=== PATIENT | male | born 1940 | race Caucasian/White ===

== ENCOUNTER → 2018-09-01 | Day surgery (SDC) | payer MEDICARE ==
[2018-08-26 16:28] LABS: BASOPHILS % 0.3 % (0.0-1.0); EOSINOPHILS # (AUTO) 0.2 (0.0-0.4); HEMATOCRIT 46.9 % (38.2-49.6); LYMPHOCYTES # (AUTO) 1.9 (1.0-3.2); LYMPHOCYTES % 20.1 % (18.0-39.1); MEAN CORPUSCULAR HEMOGLOBIN 30.8 pg (28-32); MEAN CORPUSCULAR HGB CONC 34.1 g/dL (31-35); MEAN CORPUSCULAR VOLUME 90.2 fL (81-99); MONOCYTES # (AUTO) 0.9 (0.2-0.8); MONOCYTES % 8.8 % (4.4-11.3); NEUTROPHILS # (AUTO) 6.6 (2.1-6.9); NEUTROPHILS % 68.4 % (38.7-80.0); PLATELET COUNT 195 x10e3/uL (140-360); RED CELL DISTRIBUTION WIDTH 13.5 % (11.7-14.4)
[~2018-09-01] MED LIST: ASPIRIN81 MG PO; CENTRUM SILVER1 EAC1 PO; CETIRIZINE HCL10 MG PO; FINASTERIDE5 MG PO; FLOMAX0.4 MG PO; GLUCAGON FOR INJ 1 MG VIAL ONE; ISOSORBIDE MONO30 MG PO; LASIX20 MG PO; LEVOCETIRIZINE D5 MG PO; LEVOTHYROXINE50 MCG PO; PANTOPRAZOLE SO40 MG PO; PLAVIX75 MG PO; PROPOFOL IV EMULSION 10 MG/ML 50 ML VIAL ONE; RANITIDINE HCL150 M1 PO; TUMS200 MG
[2018-09-01 11:25] VITALS: BP 124/72
[2018-09-01 12:55] LABS: C DIFFICILE TOXIN A&B AMP PROB NEGATIVE (NEGATIVE); WBC,FECAL (FECAL LACTOFERRIN) NEGATIVE (NEGATIVE)
--- NOTE | 2018-09-01 12:55 | Operative Report ---
DATE OF PROCEDURE: September 01, 2018 REFERRING PHYSICIAN: Dr. Felipe Marley PROCEDURE PERFORMED: Colonoscopy and polypectomy. INDICATIONS FOR COLONOSCOPY: Surveillance colonoscopy, personal history of colon polyps, change in bowel habits. MEDICATION: Patient was done under MAC. Please see anesthesiologist's note. PROCEDURE: With the patient in the left lateral decubitus position, the flexible fiberoptic Olympus colonoscope was inserted into the rectum with ease and advanced all the way to the cecum. Mucosa overlying the cecum appeared to be within normal limits. Two polyps were hot biopsied from the ascending colon. The transverse and descending appeared to be within normal limits. Mucosa overlying the sigmoid and rectum revealed some patchy, mild, inflammatory changes and biopsies were obtained. One polyp was hot biopsied from the rectum. The scope was then retroflexed into the distal rectum, and small internal hemorrhoids were noted, none of which was actively bleeding. The scope was then straightened out. It was subsequently withdrawn. Patient tolerated the procedure well. IMPRESSION 1. Ascending colon polyps x2, hot biopsied. 2. Proctosigmoiditis, mild, biopsies obtained. 3. Rectal polyp, hot biopsied. 4. Internal hemorrhoids, none actively bleeding. PLAN: Follow up histology. Follow up stool studies. Initiate Bentyl 10 mg 1 p.o. t.i.d. and VSL #3 one p.o. daily. Patient might benefit from a followup colonoscopy in 3 to 5 years. Job#: [id number] cc:JAYA MARLEY DO
== END | disposition home or self-care (01) ==
LOC: OR 07:00
PROVIDERS: ATTEND Internal Medicine Gastroenterology
DX: K63.89 Other specified diseases of intestine (principal); K63.5 Polyp of colon; K62.1 Rectal polyp; K25.9 Gastric ulcer, unspecified as acute or chronic, without hemorrhage or perforation; K44.9 Diaphragmatic hernia without obstruction or gangrene; K21.9 Gastro-esophageal reflux disease without esophagitis; E03.9 Hypothyroidism, unspecified; I50.9 Heart failure, unspecified; R03.0 Elevated blood-pressure reading, without diagnosis of hypertension; E66.01 Morbid (severe) obesity due to excess calories; F41.9 Anxiety disorder, unspecified; Z91.041 Radiographic dye allergy status; Z01.810 Encounter for preprocedural cardiovascular examination; Z01.812 Encounter for preprocedural laboratory examination; Z79.82 Long term (current) use of aspirin; Z68.34 Body mass index [BMI] 34.0-34.9, adult; Z95.5 Presence of coronary angioplasty implant and graft
CPT/HCPCS: 36415; 45380; 45384; 83630; 83993; 85025; 87045; 87177; 87328; 87493; 88305; 93005; J1610; 45378; 45385

== ENCOUNTER 2019-01-19 14:16 | Inpatient (IN) | payer MEDICARE ==
[~2019-01-19] VITALS: Ht 175.3 cm; Wt 105.8 kg
[~2019-01-19 14:16] MED LIST changes: -GLUCAGON FOR INJ 1 MG VIAL ONE; -PROPOFOL IV EMULSION 10 MG/ML 50 ML VIAL ONE
--- OUTSIDE RECORDS SUMMARY | 2019-01-19 14:19 | XMS REPORT ---
Author Author [facility] Address Unknown Phone Unavailable Care Team Providers Care Knife Changer Name Role Phone Unavailable Unavailable Payers Payer Name Policy Type Policy Number Effective Date Expiration Date Problems This patient has no known problems. Allergies, Adverse Reactions, Alerts Allergy Name Allergy Type Status Severity Reaction(s) Onset Date Inactive Date Treating Clinician Comments iodine DA Active U 2017-01-22 00:00:00 SHIMP DA Active U 2017-01-21 00:00:00 Medications This patient has no known medications. Results Test Description Test Time Test Comments Text Results Atomic Results Result Comments THYROID PROFILE W/TSH 2018-10-03 15:23:00 T3 UPTAKE (test code=T3UP) 36.0 % 30.0-40.0 T4 (THYROXINE) (test code=T4) 8.9 ug/dL 4.5-13.9 T7 (FREE THYROXINE INDEX) (test code=T7) 3.20 FTI 1.3-5.1 THYROID STIMULATING HORMONE (test code=TSH) 4.050 uIU/mL 0.36-3.74 TSH REFERENCE RANGES: EUTHYROID: 0.35 - 4.3 mIU/mL HYPO : > 5.5 mIU/mL HYPER : < 0.35 mIU/mL
[2019-01-19] MEDS ORDERED: SODIUM CHLORIDE 0.9% 1000ML 1,000 ML IV STA (14:41)
[2019-01-19] MEDS ORDERED: ONDANSETRON HCL INJ 2MG/ML 2ML 2 MG/ML VIAL IV ONE (14:45)
[2019-01-19] MEDS ORDERED: FAMOTIDINE 20 MG/2 ML VIAL IV ONE ×2 (14:45→14:53)
[2019-01-19] MEDS ORDERED: ONDANSETRON HCL INJ 2MG/ML 2ML 2 MG/ML VIAL ONE (14:53)
[2019-01-19] MEDS ORDERED: SODIUM CHLORIDE 0.9% 1000ML 1,000 ML ONE (14:54)
--- NOTE | 2019-01-19 16:36 | Diagnostic Imaging Report ---
EXAMINATION: CT of the abdomen and pelvis without contrast. TECHNIQUE: Spiral CT images of the abdomen and pelvis were performed from the lung bases to the lesser trochanters. No intravenous contrast was administered. Oral Gastrografin was given for GI opacification. Coronal and sagittal reformatted images were obtained. Technique modification was utilized to maintain the lowest dose possible to the patient. DLP: 857.50 mGy-cm COMPARISON: None. CLINICAL HISTORY:Lower abdominal pain DISCUSSION: ABSENCE OF INTRAVENOUS CONTRAST DECREASES SENSITIVITY FOR DETECTION OF FOCAL LESIONS AND VASCULAR PATHOLOGY. ABDOMEN/PELVIS: LOWER THORAX: Unremarkable. HEPATOBILIARY:No focal hepatic lesions. No biliary ductal dilation. The gallbladder is absent. SPLEEN: No splenomegaly. PANCREAS: No focal masses or ductal dilatation. ADRENALS: No adrenal nodules. KIDNEYS/URETERS: No hydronephrosis or stones. Several renal hypodensities likely represents cyst but inconclusive without IV contrast material. PELVIC ORGANS/BLADDER: The bladder is normal. Prostate calcification. PERITONEUM/RETROPERITONEUM: No free air or fluid. LYMPH NODES: No intra-abdominal,retroperitoneal, pelvic or inguinal lymphadenopathy. VESSELS: Vascular calcification is present. GI TRACT: Focal inflammation involving a loop of sigmoid colon in the midline of the abdomen anteriorly with pericolonic fat stranding and mesenteric stranding. There is a paucity of diverticula in the colon. While this appearance is suggestive of diverticulitis; focal colitis or even neoplasm is also a concern. BONES AND SOFT TISSUES: No bony destructive lesions. Multilevel degenerative changes of the spine. No soft tissue abnormalities. IMPRESSION: 1. Focal colonic thickening with pericolonic stranding involving the sigmoid colon/distal descending colon junction. 2. Differential as described above. Signed by: Dr. Jose Sotelo DO on 01/19/2019 4:33 PM
[2019-01-19] MEDS ORDERED: DICYCLOMINE HCL20 MG PO (16:51)
[2019-01-19] MEDS ORDERED: FAMOTIDINE 20 MG/2 ML VIAL IV SCH (17:00)
[2019-01-19] MEDS ORDERED: PROMETHAZINE 12.5MG/ NACL 0.9% 12.5 MG/50 ML BAG IV PRN (17:00)
[2019-01-19] MEDS ORDERED: ZOLPIDEM TARTRATE 5 MG TAB PO PRN (17:00)
[2019-01-19] MEDS ORDERED: CLONIDINE HCL 0.2 MG TAB PO PRN (17:00)
[2019-01-19] MEDS ORDERED: LACTULOSE SYRUP 20 GM/30 ML UDC PO PRN (17:00)
[2019-01-19] MEDS ORDERED: DIPHENHYDRAMINE HCL INJ 50 MG/ML VIAL IV PRN (17:00)
[2019-01-19] MEDS ORDERED: ENALAPRILAT IV INJ 1.25 MG/ML VIAL IV PRN (17:00)
[2019-01-19] MEDS ORDERED: MORPHINE SULFATE 2 MG/ML SYR 1ML IV PRN (17:00)
--- NOTE | 2019-01-19 17:07 | NUR ---
Called [facility] for transport to hospital for admission to room 180
--- NOTE | 2019-01-19 17:07 | NUR ---
Called report to NADIA Hartley on obs floor
[2019-01-19] MEDS: LEVOFLOXACIN 500MG/D5W 100ML 100 ML IV SCH (17:08)
[2019-01-19] MEDS: LACTATED RINGER'S 1,000 ML IV SCH (17:08)
[2019-01-19] MEDS ORDERED: LEVOFLOXACIN 500MG/D5W 100ML 100 ML IV ONE (17:21)
[2019-01-19] MEDS ORDERED: LACTATED RINGER'S 1,000 ML ONE (17:21)
[2019-01-19] MEDS ORDERED: PROMETHAZINE 12.5MG/ NACL 0.9% 50 ML IV PRN (17:30)
[2019-01-19] MEDS ORDERED: MORPHINE SULFATE INJ 4 MG/ML INJ 1ML IV PRN (17:30)
--- NOTE | 2019-01-19 18:00 | NUR ---
[facility] here to transport pt to room 180
[2019-01-19] MEDS: METRONIDAZOLE 500MG/NS 100ML 100 ML IV SCH (19:17)
[2019-01-19 20:00] VITALS: BP 143/63
[2019-01-19 20:30] VITALS: BP 143/63
[2019-01-19] MEDS: HYDROCORTISONE ACETATE 25 MG/SUPP.RECT SUPP RC SCH ×2 (21:09→21:15)
[2019-01-20] VITALS (7 sets, daily range): BP systolic 118–153; BP diastolic 57–75
[2019-01-20] MEDS: METRONIDAZOLE 500MG/NS 100ML 100 ML IV SCH ×3 (03:20→18:03)
--- NOTE | 2019-01-20 07:09 | NUR ---
Beside report received. Patient is awake, alert and currently denies any pain. POC discussed. at the bedside. Right AC IV infusing LR@50cc/hr without any redness or swelling noted. Bed in lowest position, locked and call chavarria within reach.
--- NOTE | 2019-01-20 07:17 | NUR ---
Gave report to oncoming nurse. Call light within reach. Patient in bed. at bedside
[2019-01-20] MEDS: HYDROCORTISONE ACETATE 25 MG/SUPP.RECT SUPP RC SCH ×2 (08:44→17:20)
[2019-01-20] MEDS: FAMOTIDINE 20 MG/2 ML VIAL IV SCH ×2 (08:44→17:20)
[2019-01-20 10:05] LABS: BASOPHILS % 0.3 % (0.0-1.0); EOSINOPHILS # (AUTO) 0.4 (0.0-0.4); EOSINOPHILS % 4.5 % (0.0-6.0); HEMATOCRIT 45.4 % (38.2-49.6); HEMOGLOBIN 15.7 g/dL (14.0-18.0); LYMPHOCYTES # (AUTO) 1.6 (1.0-3.2); LYMPHOCYTES % 17.1 % (18.0-39.1); MEAN CORPUSCULAR HEMOGLOBIN 31.3 pg (28-32); MEAN CORPUSCULAR HGB CONC 34.6 g/dL (31-35); MEAN CORPUSCULAR VOLUME 90.6 fL (81-99); MONOCYTES # (AUTO) 0.9 (0.2-0.8); MONOCYTES % 9.8 % (4.4-11.3); NEUTROPHILS # (AUTO) 6.4 (2.1-6.9); NEUTROPHILS % 67.9 % (38.7-80.0); PLATELET COUNT 186 x10e3/uL (140-360); RED BLOOD COUNT 5.01 x10e6/uL (4.3-5.7); RED CELL DISTRIBUTION WIDTH 13.2 % (11.7-14.4)
[2019-01-20 10:29] LABS: ALANINE AMINOTRANSFERASE 11 IU/L (0-55); ALBUMIN 3.2 g/dL (3.5-5.0); ALBUMIN/GLOBULIN RATIO 0.9 (0.8-2.0); ALKALINE PHOSPHATASE 53 IU/L (40-150); ANION GAP 11.4 mmol/L (8-16); BLOOD UREA NITROGEN 8 mg/dL (7-26); BUN/CREATININE RATIO 9 (6-25); CALCIUM 9.1 mg/dL (8.4-10.2); CARBON DIOXIDE 26 mmol/L (22-29); CHLORIDE 104 mmol/L (98-107); CREATININE, SERUM 0.85 mg/dL (0.72-1.25); EST GLOMERULAR FILTRATION RATE > 60 ML/MIN (60-); GLUCOSE 90 mg/dL (74-118); POTASSIUM 4.4 mmol/L (3.5-5.1); SODIUM 137 mmol/L (136-145)
[2019-01-20] MEDS: ISOSORBIDE MONONITRATE 30 MG TAB CR PO SCH (11:10)
[2019-01-20] MEDS: FUROSEMIDE 20 MG TAB PO SCH (11:10)
--- NOTE | 2019-01-20 11:31 | NUR ---
RECEIVED PATIENT VIA WHEELCHAIR FROM OBS UNIT. PATIENT DENIES PAIN AT THIS TIME. RESP EVEN AND UNLABORED. AT BEDSIDE. ORIENTED TO ROOM AND USE OF CALL LIGHT, CALL LIGHT PLACED WITHIN REACH.
[2019-01-20] MEDS: LACTATED RINGER'S 1,000 ML IV SCH ×2 (12:13→17:50)
[2019-01-20] MEDS: DICYCLOMINE HCL 20 MG TAB PO SCH ×2 (16:06→20:56)
[2019-01-20] MEDS: ASPIRIN 81 MG CHEW TAB PO SCH (17:20)
[2019-01-20] MEDS: LEVOFLOXACIN 500MG/D5W 100ML 100 ML IV SCH (17:20)
[2019-01-20] MEDS: PANTOPRAZOLE SOD 40 MG TABEC PO SCH (17:20)
[2019-01-20] MEDS: FINASTERIDE 5 MG TAB PO SCH (20:56)
--- NOTE | 2019-01-20 21:30 | NUR ---
Nauseated.but refused medicine for nausea.had loose bowel movement.bed locked and in lowest position.phone and call light within reach.informed to call for assistance as needed.
[2019-01-21] VITALS (8 sets, daily range): BP systolic 112–140; BP diastolic 60–69
--- NOTE | 2019-01-21 00:29 | NUR ---
Report given to Miryam.
[2019-01-21] MEDS: METRONIDAZOLE 500MG/NS 100ML 100 ML IV SCH ×3 (01:04→17:50)
[2019-01-21] MEDS: ONDANSETRON HCL INJ 2MG/ML 2ML 2 MG/ML VIAL IV PRN (04:03)
[2019-01-21] MEDS: LEVOTHYROXINE SODIUM 50 MCG TAB PO SCH (05:03)
--- NOTE | 2019-01-21 07:19 | NUR ---
received pt lying in bed with eyes open, Resp even and unlabored. denies pain at this time. call light within reach.
[2019-01-21] MEDS: HYDROCORTISONE ACETATE 25 MG/SUPP.RECT SUPP RC SCH ×2 (09:00→16:27)
[2019-01-21] MEDS: DICYCLOMINE HCL 20 MG TAB PO SCH ×3 (09:02→21:09)
[2019-01-21] MEDS: ASPIRIN 81 MG CHEW TAB PO SCH ×2 (09:02→16:27)
[2019-01-21] MEDS: FUROSEMIDE 20 MG TAB PO SCH (09:02)
[2019-01-21] MEDS: ISOSORBIDE MONONITRATE 30 MG TAB CR PO SCH (09:02)
[2019-01-21] MEDS: PANTOPRAZOLE SOD 40 MG TABEC PO SCH ×2 (09:02→16:27)
[2019-01-21] MEDS: FAMOTIDINE 20 MG/2 ML VIAL IV SCH ×2 (09:02→16:27)
[2019-01-21] MEDS: TAMSULOSIN HCL 0.4 MG CAP PO SCH (09:02)
--- NOTE | 2019-01-21 09:10 | NUR ---
patient refused scheduled Anucort at this time, states "doesn't feel irritated right now." patient was asked to report if discomfort arises ad verbalizes understandment.
[2019-01-21] MEDS: ACETAMINOPHEN 325 MG TAB PO PRN (15:18)
[2019-01-21] MEDS: LEVOFLOXACIN 500MG/D5W 100ML 100 ML IV SCH (16:27)
--- NOTE | 2019-01-21 18:17 | Progress Note ---
DATE: Internal Medicine Progress Note SUBJECTIVE: The patient came with diverticulitis. He has been feeling better. PHYSICAL EXAMINATION: VITAL SIGNS: Blood pressure 118/62, temperature 96.6, heart rate 58 per minute, respiratory rate is 18 per minute, oxygen saturation 96%. HEART: Showed regular rhythm. Normal S1 and S2 sounds. LUNGS: Clear bilaterally. ABDOMEN: Soft. EXTREMITIES: Show no evidence of cyanosis or hematoma. LABORATORY DATA: On BMP, sodium 137, potassium 4.4, chloride 104, CO2 of 26, BUN 8, creatinine 0.6, glucose 90. On CBC, white blood count 9.49, hemoglobin 15.7, hematocrit 45.4, platelet count of 186,000. AST 13, ALT 11, total bilirubin 0.8, alkaline phosphatase 53. IMPRESSION: 1. Acute diverticulitis. 2. Hypothyroidism. 3. Hypertension. 4. Benign prostatic hypertrophy. PLAN OF TREATMENT: Continue Levaquin 500 mg IV daily, metronidazole 500 mg IV q.8 hours. Continue promethazine 12.5 mg IV q.4 hours as needed for nausea and vomiting, Tylenol 650 mg q.6 hours as needed, clonidine 0.2 mg three times a day, hydrocortisone acetate 25 mg twice a day, furosemide 20 mg daily, Flomax 0.4 mg daily, Benadryl 25 mg q.6 hours as needed for itching, Ambien 5 mg at night p.r.n. for sleep, aspirin 81 mg daily, isosorbide mononitrate 15 mg daily, morphine sulfate 2 mg IV q.4 hours as needed for [id number]-[id number] pain, lactulose 20 g twice a day, Zofran 4 mg twice a day as needed for vomiting, Bentyl 20 mg three times a day, levothyroxine 50 mcg daily, enalapril 0.625 mg IV q.6 hours as needed for hypertension, Pepcid 20 mg twice a day, finasteride 5 mg daily, and Protonix 40 mg twice a day. MD LUCY Luther/BOLIVAR /[id number]
--- NOTE | 2019-01-21 19:35 | NUR ---
Patient received sitting up in bed. at bedside. AAO x 3. Patient had no complaints of pain. No signs of respiratory distress. Fall precautions implemented. Patient instructed to call for assistance when needed. Call light within reach.
[2019-01-21] MEDS: FINASTERIDE 5 MG TAB PO SCH (21:09)
[2019-01-22] VITALS (8 sets, daily range): BP systolic 110–123; BP diastolic 53–61
[2019-01-22] MEDS: METRONIDAZOLE 500MG/NS 100ML 100 ML IV SCH ×3 (02:14→17:52)
[2019-01-22] MEDS ORDERED: SODIUM CHLORIDE 0.9% 250ML 250 ML ONE (02:20)
[2019-01-22] MEDS: LEVOTHYROXINE SODIUM 50 MCG TAB PO SCH (05:27)
--- NOTE | 2019-01-22 06:44 | NUR ---
Walking rounds done. Shift report given to oncoming nurse.
--- NOTE | 2019-01-22 07:35 | NUR ---
RECEIVED PATIENT RESTING IN BED. NO SIGNS OF DISTRESS AT THIS TIME. AT BEDSIDE. BED LOW, WHEELS LOCKED, SIDE RAILS X2. CALL LIGHT IN REACH WILL CONTINUE TO MONITOR PATIENT.
[2019-01-22] MEDS: ONDANSETRON HCL INJ 2MG/ML 2ML 2 MG/ML VIAL IV PRN ×2 (07:50→17:58)
[2019-01-22] MEDS: HYDROCORTISONE ACETATE 25 MG/SUPP.RECT SUPP RC SCH ×2 (07:51→17:00)
[2019-01-22] MEDS: PANTOPRAZOLE SOD 40 MG TABEC PO SCH ×2 (08:22→16:50)
[2019-01-22] MEDS: ISOSORBIDE MONONITRATE 30 MG TAB CR PO SCH (08:23)
[2019-01-22] MEDS: TAMSULOSIN HCL 0.4 MG CAP PO SCH (08:23)
[2019-01-22] MEDS: DICYCLOMINE HCL 20 MG TAB PO SCH ×3 (08:23→20:51)
[2019-01-22] MEDS: FUROSEMIDE 20 MG TAB PO SCH (08:23)
[2019-01-22] MEDS: FAMOTIDINE 20 MG/2 ML VIAL IV SCH ×2 (08:23→16:50)
[2019-01-22] MEDS: ASPIRIN 81 MG CHEW TAB PO SCH ×2 (08:23→16:50)
[2019-01-22] MEDS: ACETAMINOPHEN 325 MG TAB PO PRN (14:15)
--- NOTE | 2019-01-22 15:17 | Progress Note ---
DATE: Internal Medicine Progress Note SUBJECTIVE: He came here with diverticulitis. He is doing much better. No fever. White blood cell count is normal. OBJECTIVE: VITAL SIGNS: Blood pressure 123/57, temperature 37.2, heart rate 60 per minute, respiratory rate 18 per minute, oxygen saturation 95%. HEART: Showed regular rhythm. Normal S1, S2 sounds. LUNGS: Clear bilaterally. ABDOMEN: Soft, nontender. No distention. LABORATORY DATA: BMP; sodium 137, potassium 4.4, chloride 104, CO2 of 26, BUN 8, creatinine 0.6, glucose 90. CBC; white blood count 9.49, hemoglobin 15.7, hematocrit 45.4, platelet count of 186,000. AST 13, ALT 11, total bilirubin 0.8, alkaline phosphatase 53. IMPRESSION: 1. Acute diverticulitis, which is resolving. 2. Hypertension. 3. Hyperlipidemia. 4. Hypothyroidism. PLAN OF TREATMENT: Continue Levaquin, metronidazole IV. Continue promethazine 12.5 mg IV q.4 hours as needed. Continue Tylenol 650 mg q.4 hours as needed for pain or fever, clonidine 0.2 mg three times a day, hydrocortisone acetate 25 mg twice a day, furosemide 20 mg daily, Flomax 0.4 mg daily, Ambien 5 mg at night p.r.n. for sleep, aspirin 81 mg daily, isosorbide mononitrate 15 mg daily, morphine 2 mg IV q.4 hours as needed, lactulose 20 g twice a day, Zofran 4 mg IV q.4 hours, Bentyl 20 mg three times a day, levothyroxine 50 mcg daily, enalapril 0.625 mg IV q.6 hours as needed for hypertension, Pepcid 20 mg twice a day, finasteride 5 mg daily, Protonix 40 mg twice a day. MD LUCY Luther/BOLIVAR /[id number]
[2019-01-22] MEDS: LEVOFLOXACIN 500MG/D5W 100ML 100 ML IV SCH (16:50)
[2019-01-22] MEDS: FINASTERIDE 5 MG TAB PO SCH (20:51)
--- NOTE | 2019-01-22 22:08 | NUR ---
patient stated that no bowel movement today.but refused to take syp.lactulose.Assessment done.no resp.distress.iv right ac is patent.bed locked and in lowest position.phone and call light within reach.instructed to to call for assistance as needed.
--- NOTE | 2019-01-22 22:56 | NUR ---
IS IN THE UNIT.RECEIVED NEW ORDER.
[2019-01-23] MEDS: METRONIDAZOLE 500MG/NS 100ML 100 ML IV SCH ×3 (02:00→18:32)
[2019-01-23] MEDS: LEVOTHYROXINE SODIUM 50 MCG TAB PO SCH (05:47)
--- NOTE | 2019-01-23 06:55 | NUR ---
Bed side shift report given to the oncoming RN.stable condition.
--- NOTE | 2019-01-23 07:00 | NUR ---
received am report from rn. pt is lying in bed, no s/s of distress. call light within reach, side rails up, bed in lowest position. is at the bedside
[2019-01-23 08:00] VITALS: BP 126/63
[2019-01-23] MEDS: PANTOPRAZOLE SOD 40 MG TABEC PO SCH ×2 (08:42→17:19)
[2019-01-23] MEDS: ASPIRIN 81 MG CHEW TAB PO SCH ×2 (08:43→17:20)
[2019-01-23] MEDS: TAMSULOSIN HCL 0.4 MG CAP PO SCH (08:43)
[2019-01-23] MEDS: DICYCLOMINE HCL 20 MG TAB PO SCH ×3 (08:43→20:54)
[2019-01-23] MEDS: FAMOTIDINE 20 MG/2 ML VIAL IV SCH ×2 (08:44→17:23)
[2019-01-23] MEDS: FUROSEMIDE 20 MG TAB PO SCH (08:44)
[2019-01-23] MEDS: ISOSORBIDE MONONITRATE 30 MG TAB CR PO SCH (08:44)
[2019-01-23 08:45] VITALS: BP 126/63
[2019-01-23] MEDS: HYDROCORTISONE ACETATE 25 MG/SUPP.RECT SUPP RC SCH ×2 (08:46→16:22)
[2019-01-23] MEDS: POLYETHYLENE GLYCOL 3350 17 GM PACK PO SCH ×2 (08:48→17:19)
--- NOTE | 2019-01-23 10:48 | NUR ---
IMM EXPLAINED TO PT, SIGNED BY PT AND PLACED ON CHART COPY TO PT IN CARE TRANSITIONS FOLDER
[2019-01-23] MEDS ORDERED: FAMOTIDINE20 MG PO (12:24)
[2019-01-23 12:28] VITALS: BP 128/77
[2019-01-23] MEDS: ACETAMINOPHEN 325 MG TAB PO PRN (14:11)
[2019-01-23 16:00] VITALS: BP 135/78
[2019-01-23] MEDS: LEVOFLOXACIN 500MG/D5W 100ML 100 ML IV SCH (17:14)
--- NOTE | 2019-01-23 19:30 | NUR ---
Rounding done & report received. Patient is resting in bed, awake & alert, respirations even & unlabored, no distress noted. is at bedside. Patient stated he had BM. Rates pain level 4/10 to abdomen, denies any pain medication at this time. Call light within reach, side railsx2 raised & bed set to lowest position.
[2019-01-23] MEDS: ONDANSETRON HCL INJ 2MG/ML 2ML 2 MG/ML VIAL IV PRN (19:58)
[2019-01-23 20:00] VITALS: BP 140/69
[2019-01-23] MEDS: FINASTERIDE 5 MG TAB PO SCH (20:54)
[2019-01-24] VITALS: BP 135/74
[2019-01-24 00:05] VITALS: BP 135/78
[2019-01-24] MEDS: METRONIDAZOLE 500MG/NS 100ML 100 ML IV SCH ×2 (01:17→10:00)
[2019-01-24 04:00] VITALS: BP 121/72
[2019-01-24] MEDS: LEVOTHYROXINE SODIUM 50 MCG TAB PO SCH (05:25)
[2019-01-24] MEDS: ONDANSETRON HCL INJ 2MG/ML 2ML 2 MG/ML VIAL IV PRN (05:43)
[2019-01-24] MEDS: PANTOPRAZOLE SOD 40 MG TABEC PO SCH (07:30)
[2019-01-24 08:45] VITALS: BP 144/68
--- NOTE | 2019-01-24 08:45 | NUR ---
IIn to complete the morning med pass and the iv site is reddened and discomfort noted. The iv site [email or web address]. Thenola. is discharging home today and the iv is not restarted.
[2019-01-24] MEDS: HYDROCORTISONE ACETATE 25 MG/SUPP.RECT SUPP RC SCH (09:00)
[2019-01-24 09:10] VITALS: BP 144/68
[2019-01-24] MEDS: FAMOTIDINE 20 MG/2 ML VIAL IV SCH (09:33)
[2019-01-24] MEDS: DICYCLOMINE HCL 20 MG TAB PO SCH (09:33)
[2019-01-24] MEDS: TAMSULOSIN HCL 0.4 MG CAP PO SCH (09:33)
[2019-01-24] MEDS: ASPIRIN 81 MG CHEW TAB PO SCH (09:33)
[2019-01-24] MEDS: FUROSEMIDE 20 MG TAB PO SCH (09:35)
[2019-01-24] MEDS: POLYETHYLENE GLYCOL 3350 17 GM PACK PO SCH (09:35)
[2019-01-24] MEDS: ISOSORBIDE MONONITRATE 30 MG TAB CR PO SCH (09:35)
[2019-01-24] MEDS: ACETAMINOPHEN 325 MG TAB PO PRN (10:00)
[2019-01-24] MEDS ORDERED: LEVAQUIN500 MG PO (10:34)
[2019-01-24] MEDS ORDERED: FLAGYL250 MG (10:35)
--- NOTE | 2019-01-24 12:50 | NUR ---
The pt. was escorted to private car for transport and placed into the care of his spouse. He was provided prescriptions and follow up information.
[2019-01-24] MEDS ORDERED: FAMOTIDINE 20 MG TAB PO SCH (17:00)
== END 2019-01-24 12:45 | disposition home or self-care (01) | DRG 392 ==
LOC: FSED 14:16 → ERHOLD 16:57 → IMCU 18:13 → OBSVTOIN 01-20 10:17 → MED/SURG 01-20 11:36
DX: K57.92 Diverticulitis of intestine, part unspecified, without perforation or abscess without bleeding (principal); E03.9 Hypothyroidism, unspecified; I10 Essential (primary) hypertension; N40.0 Benign prostatic hyperplasia without lower urinary tract symptoms; E78.5 Hyperlipidemia, unspecified
CPT/HCPCS: 36415; 74176; 80053; 80307; 81003; 82948; 85025; 96361; 96374; 96375; 99284; G0378; J1956; J2405; J7030; J7050; J7121

== ENCOUNTER 2019-03-29 15:12 | Emergency (ER) | payer MEDICARE ==
[~2019-03-29] VITALS: Ht 175.3 cm; Wt 105.7 kg
[~2019-03-29 15:12] MED LIST changes: +DICYCLOMINE HCL20 MG PO; +FAMOTIDINE20 MG PO; +FLAGYL250 MG; +LEVAQUIN500 MG PO
[2019-03-29 16:24] LABS: BILIRUBIN,URINE NEGATIVE (NEGATIVE); CLARITY,URINE CLEAR (CLEAR); COLOR,URINE YELLOW (YELLOW); KETONES,URINE NEGATIVE (NEGATIVE); LEUKOCYTE ESTERASE ,URINE NEGATIVE (NEGATIVE); NITRITE,URINE NEGATIVE (NEGATIVE); PROTEIN,URINE DIPSTICK NEGATIVE (NEGATIVE); URINE UROBILINOGEN 0.2 mg/dL (0.2 - 1)
[2019-03-29 16:40] LABS: EPITHELIAL CELLS,URINE RARE /LPF
[2019-03-29 17:31] LABS: BASOPHILS % 0.4 % (0.0-1.0); EOSINOPHILS # (AUTO) 0.1 (0.0-0.4); EOSINOPHILS % 1.2 % (0.0-6.0); HEMATOCRIT 47.9 % (38.2-49.6); HEMOGLOBIN 16.6 g/dL (14.0-18.0); LYMPHOCYTES # (AUTO) 1.7 (1.0-3.2); MEAN CORPUSCULAR HEMOGLOBIN 30.9 pg (28-32); MEAN CORPUSCULAR HGB CONC 34.7 g/dL (31-35); MEAN CORPUSCULAR VOLUME 89.2 fL (81-99); MONOCYTES # (AUTO) 1.1 (0.2-0.8); MONOCYTES % 10.9 % (4.4-11.3); NEUTROPHILS # (AUTO) 6.6 (2.1-6.9); PLATELET COUNT 223 x10e3/uL (140-360); RED BLOOD COUNT 5.37 x10e6/uL (4.3-5.7); RED CELL DISTRIBUTION WIDTH 13.4 % (11.7-14.4)
--- NOTE | 2019-03-29 17:34 | NUR ---
PATIENT TO ROOM 2 AT THIS TIME
[2019-03-29 17:50] LABS: ALANINE AMINOTRANSFERASE 14 IU/L (0-55); ALBUMIN 3.6 g/dL (3.5-5.0); ALBUMIN/GLOBULIN RATIO 0.9 (0.8-2.0); ALKALINE PHOSPHATASE 57 IU/L (40-150); ANION GAP 11.7 mmol/L (8-16); BLOOD UREA NITROGEN 10 mg/dL (7-26); BUN/CREATININE RATIO 12 (6-25); CALCIUM 9.6 mg/dL (8.4-10.2); CARBON DIOXIDE 26 mmol/L (22-29); CHLORIDE 102 mmol/L (98-107); CREATININE, SERUM 0.85 mg/dL (0.72-1.25); EST GLOMERULAR FILTRATION RATE > 60 ML/MIN (60-); GLUCOSE 96 mg/dL (74-118); POTASSIUM 3.7 mmol/L (3.5-5.1); SODIUM 136 mmol/L (136-145)
--- NOTE | 2019-03-29 20:56 | Diagnostic Imaging Report ---
EXAM: CT Abdomen and Pelvis WITHOUT contrast INDICATION: ^CHRONIC DIARRHEA ^[id number] ^2019 COMPARISON: CT dated 01/19/2019 TECHNIQUE: Abdomen and pelvis were scanned utilizing a multidetector helical scanner from the lung base to the pubic symphysis without administration of IV contrast. Absence of intravenous contrast decreases sensitivity for detection of focal lesions and vascular pathology. Coronal and sagittal reformations were obtained. Routine protocol was performed. IV CONTRAST: None ORAL CONTRAST: Administered. COMPLICATIONS: None RADIATION DOSE: Total DLP: 831.11 mGy*cm Estimated effective dose: (DLP x 0.015 x size factor) mSv CTDIvol has been reviewed. It is below the limits set by the Radiation Protocol Committee (RPC). FINDINGS: LINES and TUBES: None. LOWER THORAX: Partially seen right upper lobe hazy opacification with air bronchogram. Left basilar linear atelectasis/scarring. Atherosclerotic calcification of coronary arteries. HEPATOBILIARY: Unenhanced liver is unremarkable. No biliary ductal dilation. GALLBLADDER: Surgically absent. SPLEEN: No splenomegaly. PANCREAS: Fatty involution of the pancreas. No focal masses or ductal dilatation. ADRENALS: No adrenal nodules KIDNEYS/URETERS: No hydronephrosis. Bilateral renal lesions are again seen, the largest exophytic left inferior pole lesion measuring 4.4 cm. No stones. GI TRACT: No abnormal distention or evidence of bowel obstruction. Mild ascending colon wall thickening. Appendix is not clearly identified. There is however no fat stranding or adenopathy in the right lower quadrant to suggest appendicitis. PELVIC ORGANS/BLADDER: Prominent prostate. Bladder is unremarkable. LYMPH NODES: No lymphadenopathy. VESSELS: Unremarkable. PERITONEUM / RETROPERITONEUM: No free air or fluid. BONES: Degenerative changes of spine. SOFT TISSUES: Small fat-containing right inguinal hernia. IMPRESSION: 1. Partially seen right upper lobe hazy opacification with air bronchogram, could represent atelectasis or developing pneumonia. This can be further evaluated with chest x-ray. 2. Limited study without intravenous contrast. 3. Mild ascending colon wall thickening, could be due to underdistention or infectious/inflammatory colitis in the appropriate clinical context. 4. Bilateral renal lesions are again seen, probably cysts. These can be further evaluated with nonemergent renal ultrasound. 5. Enlarged prostate gland. Signed by: Dr. Camilo Narayanan MD on 03/29/2019 8:53 PM
[2019-03-29 21:29] VITALS: BP 142/79
== END 2019-03-29 21:40 | disposition home or self-care (01) ==
LOC: ER 15:12
DX: Z79.82 Long term (current) use of aspirin (principal)
CPT/HCPCS: 36415; 74176; 80053; 81001; 85025; 99284

== ENCOUNTER → 2021-02-18 | Outpatient (CLI) | payer MEDICARE | LOC: MRI 10:28 | PROVIDERS: ATTEND Family Medicine | DX: M47.816 Spondylosis without myelopathy or radiculopathy, lumbar region (principal) | CPT/HCPCS: 72148 ==

== ENCOUNTER → 2021-11-05 | Outpatient (CLI) | payer MEDICARE | LOC: RAD 10:06 | PROVIDERS: ATTEND Internal Medicine Gastroenterology | DX: K59.00 Constipation, unspecified (principal); R14.0 Abdominal distension (gaseous) | CPT/HCPCS: 74018 ==

== ENCOUNTER → 2021-11-20 | Outpatient (CLI) | payer MEDICARE ==
[~2021-11-20] MED LIST changes: +DIATRIZOATE MEGL/DIATRIZOA SOD 30 ML BTL PO ONE; +IOPAMIDOL 370 MG/ML 200 ML INFUS..BTL INJ ONE; +SODIUM CHLORIDE 0.9% 50ML 50 ML ONE
[2021-11-20 14:12] LABS: CREATININE, SERUM 0.86 mg/dL (0.72-1.25)
== END ==
LOC: CT 13:14
PROVIDERS: ATTEND Internal Medicine Gastroenterology
DX: K59.00 Constipation, unspecified (principal); R14.0 Abdominal distension (gaseous)
CPT/HCPCS: 36415; 74177; 82565; 84520; Q9967

== ENCOUNTER 2025-03-05 12:18 | Emergency (ER) | payer MEDICARE ==
[~2025-03-05] VITALS: Ht 175.3 cm; Wt 104.3 kg
[~2025-03-05 12:18] MED LIST changes: -DIATRIZOATE MEGL/DIATRIZOA SOD 30 ML BTL PO ONE; +FLONASE ALLERG9.9 ML INH; -IOPAMIDOL 370 MG/ML 200 ML INFUS..BTL INJ ONE; +LASIX10 MG/ML PO; +LOSARTAN POTASS25 MG PO; +PRESER VISION PO; -SODIUM CHLORIDE 0.9% 50ML 50 ML ONE
[2025-03-05 12:35] VITALS: RESP 15; TEMP 97.7
[2025-03-05 13:06] LABS: BASOPHILS % 0.3 % (0.0-1.0); EOSINOPHILS % 1.6 % (0.0-6.0); LYMPHOCYTES % 23.8 % (18.0-39.1); MONOCYTES % 9.9 % (4.4-11.3); NEUTROPHILS % 64.1 % (38.7-80.0); RED CELL DISTRIBUTION WIDTH 13.6 % (11.7-14.4)
[2025-03-05 13:23] LABS: LEUKOCYTE ESTERASE ,URINE NEGATIVE (NEGATIVE); PROTEIN,URINE DIPSTICK TRACE (NEGATIVE); URINE UROBILINOGEN 0.2 mg/dL (0.2 - 1)
[2025-03-05 13:26] LABS: EST GLOMERULAR FILTRATION RATE 59.0 ML/MIN (>=60)
[2025-03-05] MEDS: ONDANSETRON HCL INJ 2MG/ML 2ML 2 MG/ML VIAL IV PRN (13:26)
[2025-03-05] MEDS: SODIUM CHLORIDE 0.9% 1000ML 1,000 ML IV ONE (13:26)
[2025-03-05] MEDS ORDERED: IOPAMIDOL 370 MG/ML 100 ML INFUS..BTL INJ ONE (13:43)
[2025-03-05 15:30] VITALS: PULSE 63; O2SAT 98
== END 2025-03-05 16:33 | disposition home or self-care (01) ==
LOC: ER 12:43
DX: R10.30 Lower abdominal pain, unspecified (principal); R11.2 Nausea with vomiting, unspecified; R19.7 Diarrhea, unspecified; I10 Essential (primary) hypertension; E03.9 Hypothyroidism, unspecified; K21.9 Gastro-esophageal reflux disease without esophagitis; M54.9 Dorsalgia, unspecified; G89.29 Other chronic pain; Z87.19 Personal history of other diseases of the digestive system
CPT/HCPCS: 36415; 74177; 80053; 81001; 83690; 85025; 99284; J2405; J7030; Q9967